=== PATIENT | female | born 1995 | race American Indian/Alaskan Native ===

== ENCOUNTER 2017-11-27 12:38 | Emergency (ER) | payer OTHER ==
[2017-11-27 12:57] VITALS: BP 124/82
[2017-11-27] MEDS ORDERED: ZOFRAN ODT PO ONE (13:21)
[2017-11-27] MEDS ORDERED: PEPCID PO ONE (13:21)
--- NOTE | 2017-11-27 13:22 | Emergency Department Report ---
Blank Doc - Documentation Documentation: Patient is a 22-year-old Female who is presenting with 2 days of nausea vomiting. Patient also has some upper abdominal discomfort. Patient states pain is a cramping sensation. Patient denies any fevers chills or diarrhea at this time. Patient's brief physical exam does have some tenderness on palpation at the epigastrium. Meds be given for symptomatic relief and patient has some laboratory studies done here in emergency department. Patient will be reassessed after lab studies.
[2017-11-27 14:08] LABS: Basophils % (Auto) 0.3 % (0.0-1.8); Eosinophils % (Auto) 0.3 % (0.0-4.3); Hematocrit 41.3 % (30.3-42.9); Hemoglobin 13.5 gm/dl (10.1-14.3); Lymphocytes # (Auto) 1.1 K/mm3 (1.2-5.4); Lymphocytes % (Auto) 13.4 % (13.4-35.0); Mean Corpuscular HGB Conc 33 % (30-34); Mean Corpuscular Hemoglobin 28 pg (28-32); Mean Corpuscular Volume 85 fl (79-97); Monocytes # (Auto) 0.3 K/mm3 (0.0-0.8); Monocytes % (Auto) 4.3 % (0.0-7.3); Platelet Count 212 K/mm3 (140-440); Red Blood Count 4.85 M/mm3 (3.65-5.03); Red Cell Distribution Width 13.6 % (13.2-15.2)
[2017-11-27 14:09] LABS: Alanine Aminotransferase 12 units/L (7-56); Albumin 4.4 g/dL (3.9-5); BUN/Creatinine Ratio 16; Blood Urea Nitrogen 11 mg/dL (7-17); Calcium 9.5 mg/dL (8.4-10.2); Hemolysis Index 3; Lipase 19 units/L (13-60)
--- NOTE | 2017-11-27 16:37 | Emergency Department Report ---
Vomiting/Diarrhea - HPI Chief Complaint: Abdominal Pain Stated Complaint: ABDOMNIAL PAIN Time Seen by Provider: 11/27/17 13:15 Duration: 1 Day Severity: mild Nausea/Vomiting Severity: Mild Diarrhea Severity: None Pain Location: Generalized Pain Severity: Mild Symptoms: Yes Able to Tolerate Fluids, No Watery Diarrhea, No Bloody diarrhea, No Fever, No Recent Unusual Foods, No Recent Untreated Water, No Recent use of Antibiotics, No Family w/ Similar Symptoms, No Contacts w/ Similar Symptoms, No Rash, No Hematuria, No Recent URI Symptoms Other History: This is a 22-year-old -[place] female who presents with nausea and vomiting that started yesterday and abdominal cramping. Patient reports diffuse abdominal pain starting yesterday with nausea and vomiting. Patient states she is unable to eat today and vomited 3 times from 8 AM to 10 AM. She has not tried taking anything [id number]. She is using heating pads with no improvement of symptoms. Denies recent travel, diarrhea, vaginal discharge, low back pain, chest pain, and fever. Last menstrual period was , 0. ED Review of Systems ROS: Stated complaint: ABDOMNIAL PAIN Other details as noted in HPI Constitutional: denies: chills, fever Respiratory: denies: cough, shortness of breath, wheezing Cardiovascular: denies: chest pain, palpitations Gastrointestinal: abdominal pain (diffuse abdominal pain), nausea, vomiting. denies: diarrhea, constipation, hematemesis, melena, hematochezia Musculoskeletal: denies: back pain, joint swelling, arthralgia Neurological: denies: headache, weakness, paresthesias Psychiatric: denies: anxiety, depression ED Past Medical Hx - Past Medical History Previous Medical History?: No - Surgical History Past Surgical History?: No - Social History Smoking Status: Never Smoker Substance Use Type: None - Medications Home Medications: Home Medications Medication Instructions Recorded Confirmed Last Taken Type Ondansetron [Zofran Odt] 4 mg PO TID PRN #10 tab.rapdis 11/27/17 Unknown Rx Sulfamethoxazole/Trimethoprim 1 each PO BID #6 tablet 11/27/17 Unknown Rx [Bactrim DS TAB] Vomiting Diarrhea Exam - Exam General: Vital signs noted. No distress. Alert and acting appropriately. HEENT: Yes Moist Mucous Membranes, No Pharyngeal Erythema, No Pharyngeal Exudates, No Rhinorrhea, No Conjuctival Injection, No Frontal Tenderness, No Maxillary Tenderness Neck: No Adenopathy, No Rigidity Lungs: Yes Clear Lung Sounds, Yes Good Air Exchange, No Wheezes, No Stridor, No Cough, No Nasal Flaring, No Retractions, No Use of Accessory Muscles Heart exam: Regular: Yes, Murmur: No, Tachycardia: No Abdomen: Tenderness: Yes (suprapubic tenderness), Peritoneal Signs: No, Distention: No, Hyperactive Bowel sounds: No Skin exam: Rash: No, Edema: No, Normal turgor: Yes Neurologic: Alert and oriented, no deficits. Musculoskeletal: Unremarkable. ED Course Vital Signs 11/27/17 12:53 Temperature 98.5 F Pulse Rate 61 Respiratory 16 Rate Blood Pressure 124/82 O2 Sat by Pulse 100 Oximetry ED Medical Decision Making - Lab Data Result diagrams: 11/27/17 13:28 11/27/17 13:28 - Medical Decision Making This is a 22 y.o. female that presents with nausea/vomiting and abdominal pain that started yesterday. Patient is stable and was examined by me. Vitals normal. Obtained CMP, CBC, & UA. Given pepcid and zofran in ER. Plan to start bactrim DS 1 tab po bid x 3 days for acute cystitis and zofran odt for nausea. Discussed plan with patient and agreed to plan. No further questions noted by the patient. Discharged home in stable condition. Follow up with PCP in 2-3 days. Critical care attestation.: If time is entered above; I have spent that time in minutes in the direct care of this critically ill patient, excluding procedure time. ED Disposition Clinical Impression: Nausea and vomiting in adult Acute cystitis Qualifiers: Hematuria presence: with hematuria Qualified Code(s): N30.01 - Acute cystitis with hematuria Disposition: TO HOME OR SELFCARE Is pt being admited?: No Does the pt Need Aspirin: No Condition: Stable Instructions: Abdominal Pain (ED), Urinary Tract Infection in Women (ED) Additional Instructions: Frequent hand washing is important to reduce spread. Increase fluid intake. Follow-up with primary care provider in 2-3 days. Prescriptions: Ondansetron [Zofran Odt] 4 mg PO TID PRN #10 tab.rapdis PRN Reason: Nausea Sulfamethoxazole/Trimethoprim [Bactrim DS TAB] 1 each PO BID #6 tablet Referrals: [facility] [Outside] - 3-5 Days [facility] [Outside] - 3-5 Days [facility] [Outside] - 3-5 Days Time of Disposition: 16:54 Print Language: JAPANESE
[2017-11-27 16:42] LABS: Bacteria,Urine 1+ /HPF (Negative); Bilirubin,Urine NEG (Negative); Blood,Urine MOD (Negative); Color,Urine Yellow (Yellow); Mucus,Urine 1+ /HPF; Urobilinogen,Urine < 2.0 mg/dL (<2.0)
[2017-11-27 16:45] LABS: WBC,Urine > 182.0 /HPF (0.0-6.0)
[2017-11-27 17:12] LABS: HCG Qualitative,Urine Negative (Negative)
== END 2017-11-27 17:08 | disposition home or self-care (01) ==
LOC: ED 12:38
DX: N30.01 Acute cystitis with hematuria (principal); R11.2 Nausea with vomiting, unspecified
CPT/HCPCS: 36415; 80053; 81001; 81025; 83690; 85025; 99283; Q0162

== ENCOUNTER 2017-11-29 06:55 | Emergency (ER) | payer OTHER ==
[2017-11-29 07:05] VITALS: BP 117/80
[2017-11-29 07:55] LABS: Bacteria,Urine 1+ /HPF (Negative); Bilirubin,Urine NEG (Negative); Blood,Urine MOD (Negative); Color,Urine Yellow (Yellow); HCG Qualitative,Urine Negative (Negative); Mucus,Urine FEW /HPF; Urobilinogen,Urine < 2.0 mg/dL (<2.0)
--- NOTE | 2017-11-29 10:26 | Emergency Department Report ---
ED Female HPI - General Chief complaint: Urogenital-Female Stated complaint: VAG D/C Time Seen by Provider: 11/29/17 07:29 Source: patient Mode of arrival: Ambulatory Limitations: No Limitations - History of Present Illness Initial comments: Patient never got her antibiotics from 2 days ago states that i didnt think it was that UTI I think that is called at that to give me out, here with persistent vaginal burning, denies exposure to the sick contacts, states has a little bit of brownish discharge, denies vaginal bleeding, denies missed period , denies abdominal pain, denies fevers shaking chills, denies nausea vomiting or diarrhea, here for evaluation of persistent vaginal burning and thinks she got misdiagnosed 2 days ago, she never got the medicine and never followed up, she does have a [employer] appointment this afternoon MD Complaint: possible STD Radiation: non-radiating Severity scale (0 -10): 0 Consistency: intermittent Associated Symptoms: denies other symptoms, vaginal discharge. denies: vaginal bleeding, abdominal pain, nausea/vomiting, fever/chills, headaches, loss of appetite, dysuria, hematuria, rash, seizure, shortness of breath, syncope, weakness - Related Data Previous Rx's Medication Instructions Recorded Last Taken Type Ondansetron [Zofran Odt] 4 mg PO TID PRN #10 tab.rapdis 11/27/17 Unknown Rx Sulfamethoxazole/Trimethoprim 1 each PO BID #6 tablet 11/27/17 Unknown Rx [Bactrim DS TAB] Doxycycline [Vibramycin CAP] 100 mg PO Q12HR #28 capsule 11/29/17 Unknown Rx metroNIDAZOLE [Flagyl] 2,000 mg PO ONCE #4 tab 11/29/17 Unknown Rx Allergies Allergy/AdvReac Type Severity Reaction Status Date / Time No Known Allergies Allergy Unverified 11/27/17 12:53 ED Review of Systems ROS: Stated complaint: VAG D/C Other details as noted in HPI Comment: All other systems reviewed and negative Constitutional: denies: diaphoresis, fever, malaise Eyes: denies: eye discharge, vision change ENT: denies: dental pain, hearing loss, epistaxis Respiratory: denies: shortness of breath, SOB with exertion, SOB at rest, stridor Cardiovascular: denies: chest pain, palpitations, dyspnea on exertion, orthopnea Endocrine: denies: excessive sweating Gastrointestinal: denies: abdominal pain, nausea, vomiting, diarrhea, constipation, hematemesis, melena, hematochezia Genitourinary: denies: abnormal menses Skin: denies: rash, lesions ED Past Medical Hx - Past Medical History Previous Medical History?: No - Surgical History Past Surgical History?: No - Social History Smoking Status: Never Smoker Substance Use Type: None - Medications Home Medications: Home Medications Medication Instructions Recorded Confirmed Last Taken Type Ondansetron [Zofran Odt] 4 mg PO TID PRN #10 tab.rapdis 11/27/17 Unknown Rx Sulfamethoxazole/Trimethoprim 1 each PO BID #6 tablet 11/27/17 Unknown Rx [Bactrim DS TAB] Doxycycline [Vibramycin CAP] 100 mg PO Q12HR #28 capsule 11/29/17 Unknown Rx metroNIDAZOLE [Flagyl] 2,000 mg PO ONCE #4 tab 11/29/17 Unknown Rx ED Physical Exam - General Limitations: No Limitations General appearance: alert, in no apparent distress, other (nontoxic) - Head Head exam: Present: atraumatic, normocephalic - Eye Eye exam: Present: PERRL, EOMI - ENT ENT exam: Present: normal exam - Neck Neck exam: Present: normal inspection. Absent: tenderness, meningismus - Respiratory Respiratory exam: Present: normal lung sounds bilaterally. Absent: respiratory distress - GI/Abdominal GI/Abdominal exam: Present: soft. Absent: distended, tenderness, guarding, rebound, rigid, mass, pulsatile mass - External exam: Present: other (refuses) - Extremities Exam Extremities exam: Present: normal inspection, normal capillary refill. Absent: pedal edema, joint swelling - Back Exam Back exam: Absent: CVA tenderness (R), CVA tenderness (L) - Neurological Exam Neurological exam: Present: alert, oriented X3, CN II-XII intact. Absent: motor sensory deficit - Psychiatric Psychiatric exam: Present: normal affect - Skin Skin exam: Present: warm. Absent: rash ED Course Vital Signs 11/29/17 06:59 Temperature 98.8 F Pulse Rate 77 Respiratory 18 Rate Blood Pressure 117/80 O2 Sat by Pulse 98 Oximetry ED Medical Decision Making - Medical Decision Making Patient states" I want to quickest way out of the ER", came back for a second opinion, urine is contaminated, refuses a cath, has no urgency dysuria frequency , she is not , vital signs are stable afebrile, no direct abdominal tenderness or rebound or guarding appreciated on exam now, no mass appreciated on exam, she denies lesions in the vaginal area, no vesicles, she does have a [employer] appointment this afternoon where she says it does not take a look down there , we will therefore do a urine GC and chlamydia, and treat her empirically, she is aware of risks including missed PID missed STDs such as herpes or syphilis but she will follow up this afternoon for RPR and HIV and formal female exam, she is no acute abdomen now and is stable for discharge, she is refusing treatment for UTI and clinically she does not seem to have symptoms of that the urine is contaminated Critical care attestation.: If time is entered above; I have spent that time in minutes in the direct care of this critically ill patient, excluding procedure time. ED Disposition Clinical Impression: Vaginitis Disposition: DC- TO HOME OR SELFCARE Is pt being admited?: No Condition: Stable Instructions: Vaginitis (ED), Sexually Transmitted Diseases (ED), Safe Sex (ED) Additional Instructions: See her doctor this afternoon return if worse Prescriptions: Doxycycline [Vibramycin CAP] 100 mg PO Q12HR #28 capsule metroNIDAZOLE [Flagyl] 2,000 mg PO ONCE #4 tab Referrals: KHUSHI GLYNN MD [Primary Care Provider] - 3-5 Days Time of Disposition: 10:26
[2017-11-29] MEDS ORDERED: XYLOCAINE 1% MPF 5 mL INFILTRATI ONE (10:31)
[2017-11-29] MEDS ORDERED: ROCEPHIN IM ONE (10:31)
== END 2017-11-29 11:00 | disposition home or self-care (01) ==
LOC: ED 06:55
DX: N76.0 Acute vaginitis (principal)
CPT/HCPCS: 81001; 81025; 96372; 99283; J0696

== ENCOUNTER 2021-01-01 20:04 | Emergency (ER) | payer SELFPAY | END 2021-01-01 21:23 | disposition home or self-care (01) | LOC: ED 20:04 | DX: J02.9 Acute pharyngitis, unspecified (principal); Z53.21 Procedure and treatment not carried out due to patient leaving prior to being seen by health care provider ==